=== PATIENT | male | born 1960 | race Caucasian/White ===

== ENCOUNTER 2021-08-28 14:31 | Outpatient (CLI) | payer OTHER | END 2021-08-28 14:32 | disposition home or self-care (01) | LOC: CSHMRI 14:31 | PROVIDERS: ATTEND Anesthesiology Pain Medicine | DX: M54.12 Radiculopathy, cervical region (principal); M47.812 Spondylosis without myelopathy or radiculopathy, cervical region; M48.02 Spinal stenosis, cervical region | CPT/HCPCS: 72052; 72141 ==